=== PATIENT | male | born 1970 | race Caucasian/White ===

== ENCOUNTER 2017-08-01 10:50 | Emergency (ER) | payer OTHER ==
[~2017-08-01] VITALS: Ht 172.7 cm; Wt 97.5 kg
[2017-08-01] MEDS ORDERED: ALBUTEROL SULFATE 2.5 MG/3 ML NEBU NEB ONE (11:30)
[2017-08-01] MEDS ORDERED: ALBUTEROL SULFATE 2.5 MG/3 ML NEBU ONE (11:49)
--- NOTE | 2017-08-01 12:05 | NUR ---
Patient discharged to home in stable conditon. Written and verbal after care instructions given. Patient verbalizes understanding of instructions. Stressed follow up with pmd or return to ER for worsening s/s.
== END 2017-08-01 12:08 | disposition home or self-care (01) ==
LOC: ER 10:50
DX: J32.9 Chronic sinusitis, unspecified (principal); J98.01 Acute bronchospasm
CPT/HCPCS: 71010; A4663

== ENCOUNTER 2018-04-01 17:24 | Emergency (ER) | payer OTHER ==
[~2018-04-01] VITALS: Ht 172.7 cm; Wt 90.7 kg
[2018-04-01 18:51] LABS: *BILIRUBIN,URIN NEGATIVE (NEGATIVE); *BLOOD, URINE NEGATIVE (NEGATIVE); *CLARITY,URINE SLIGHTLY CLOUDY (CLEAR); *COLOR,URINE YELLOW (YELLOW); *KETONES,URINE TRACE (NEGATIVE); *PROTEIN,URINE 1+ (NEGATIVE); *UROBILINOGEN,URINE 0.2 E.U./dl (NORMAL); LEUKOCYTE ESTERASE ,URINE NEGATIVE (NEGATIVE); NITRITE, URINE NEGATIVE (NEGATIVE); UGLUCOSE NEGATIVE (NEGATIVE)
[2018-04-01 19:03] LABS: BACTERIA,URINE RARE /HPF (NONE SEEN); CALCIUM OXALATE CRYSTALS,UR FEW /HPF (NONE SEEN); RBC,URINE 0-3 /HPF (0-3); SQUAMOUS EPITHELIAL CELL,UR FEW /HPF (NONE SEEN); URINE AMORPHOUS URATE MODERATE /HPF
--- NOTE | 2018-04-01 19:16 | NUR ---
Patient eloped from facility. ER physician notified.
== END 2018-04-01 19:17 | disposition left against medical advice (07) ==
LOC: ER 17:25
DX: Z53.21 Procedure and treatment not carried out due to patient leaving prior to being seen by health care provider (principal)
CPT/HCPCS: 81001; A4663

== ENCOUNTER 2024-02-16 08:16 | Emergency (ER) | payer OTHER ==
[~2024-02-16] VITALS: Ht 172.7 cm; Wt 95.3 kg
[~2024-02-16 08:16] MED LIST: ALBU6.7H9 INH; DOXY100T2 PO; PRED20TA PO
[2024-02-16 09:07] LABS: BASOPHILS % (AUTO) 0.8 % (0.0-2.0); EOSINOPHILS # (AUTO) 0.5 K/uL (0.0-0.7); EOSINOPHILS % (AUTO) 9.2 % (0.0-7.0); HEMATOCRIT 44.5 % (36.7-47.1); HEMOGLOBIN 14.7 g/dL (12.5-16.3); LYMPHOCYTES # (AUTO) 1.5 K/uL (0.8-4.8); LYMPHOCYTES % (AUTO) 25.9 % (20.5-51.5); MEAN CORPUSCULAR HGB CONC 33 g/dL (32.5-36.3); MEAN CORPUSCULAR VOLUME 90.8 fL (73.0-96.2); MONOCYTES # (AUTO) 0.5 K/uL (0.1-1.30); MONOCYTES % (AUTO) 8.8 % (0.0-11.0); NEUTROPHILS # (AUTO) 3.2 K/uL (1.8-8.9); NEUTROPHILS % (AUTO) 55.3 % (38.5-71.5); PLATELET COUNT (AUTO) 170 K/uL (152-348); RED CELL DISTRIBUTION WIDTH 14.2 % (12.1-16.2); WHITE BLOOD COUNT (AUTO) 5.9 K/uL (3.6-10.2)
[2024-02-16 09:28] LABS: DIFFERENTIAL COMMENT 1
[2024-02-16 09:36] LABS: CALCIUM 9.1 mg/dL (8.5-10.1); POTASSIUM 4.5 mmol/L (3.5-5.1)
[2024-02-16] MEDS ORDERED: ALBU8.5H8 INH (10:09)
[2024-02-16] MEDS ORDERED: GUAI5SYR4 PO (10:09)
[2024-02-16] MEDS ORDERED: CEFU250T85 PO (10:09)
[2024-02-16] MEDS ORDERED: FLAS1KIT2 TP (10:10)
[2024-02-16] MEDS ORDERED: FLAS1EAC2 TP (10:10)
[2024-02-16 10:28] VITALS: BP 133/84; TEMP 98; O2SAT 99
[2024-02-17] MEDS ORDERED: ALBU8.5H8 INH (10:00)
[2024-02-17] MEDS ORDERED: GUAI5SYR4 PO (10:00)
[2024-02-17] MEDS ORDERED: FLAS1KIT2 TP (10:00)
[2024-02-17] MEDS ORDERED: CEFU250T85 PO (10:00)
[2024-02-17] MEDS ORDERED: PRED20TA PO (10:00)
[2024-02-17] MEDS ORDERED: FLAS1EAC2 TP (10:00)
== END 2024-02-16 10:29 | disposition home or self-care (01) ==
LOC: ER 08:18
DX: R05.9 Cough, unspecified (principal); R07.89 Other chest pain; Z79.899 Other long term (current) drug therapy
CPT/HCPCS: 71045; 85025; A4606; A4663